=== PATIENT | male | born 1995 | race Caucasian/White ===

== ENCOUNTER 2020-03-12 09:28 | Emergency (ER) | payer BC ==
--- NOTE | 2020-03-12 10:04 | EDM.PDOC ---
ED HPI GENERAL MEDICAL PROBLEM - General Chief Complaint: Lower Extremity Injury/Pain Stated Complaint: INJURY RT KNEE Time Seen by Provider: 03/12/20 09:43 Source of Information: Reports: Patient History Limitations: Reports: No Limitations - History of Present Illness INITIAL COMMENTS - FREE TEXT/NARRATIVE: 24-year-old male presents with right knee pain that started 2 days ago. Pain came on acutely after bending. He felt a pop to his medial right knee. His right knee was swollen after the injury but has subsided since. He has been walking on it over the last 2 days. Denies fever, chills, ankle pain or hip pain. ROS: A 10-point review of systems, other than pertinent positives and negatives as stated per HPI, is otherwise negative Past medical history: No additional pertinent history Past Surgical history: No additional pertinent history Social history: No additional pertinent history Family history: No additional pertinent history PHYSICAL EXAM General: AOx4, GCS = 15, No distress HEENT: dry mucous membrane Neck: supple, no meningismus, no Kernig or Brudzinski Cardiac: S1S2 RRR Respiratory: CTAB, no crackles or rales, no wheezing Abdomen: Soft, nontender, no rebound or guarding, nondistended, no pulsatile mass. Back: nontender Musculoskeletal: NVI distally, no deformity, right knee medial joint line tenderness, tenderness to MCL insertion and with varus stress. Negative Yanelis, negative anterior or posterior drawer sign. Neuro: No focal deficits, CN 2 - 12 WNL. Right knee Pain Score (Numeric/FACES): 6 - Related Data Allergies Allergy/AdvReac Type Severity Reaction Status Date / Time No Known Allergies Allergy Verified 03/12/20 10:00 Home Meds: Home Meds . [No Known Home Meds] 03/12/20 [History] Review of Systems - Review of Systems Review Of Systems: Comprehensive ROS is negative, except as noted in HPI. ED EXAM, GENERAL - Physical Exam Exam: See Below ED TRAUMA EXTREMITY PROCEDURES - Splinting Right Lower Extremity Pre-Procedure NV Status: Normal Post-Procedure NV Status: Normal Splint Design: Knee Immobilizer Applied & Form Fitted By: Nurse Provider Post-Splint Application NV Check: NV Status Normal, Good Position Complications: No Course - Vital Signs Last Recorded V/S: Last Vital Signs Temp 96.7 F L 03/12/20 10:00 Pulse 65 03/12/20 10:00 Resp 17 03/12/20 10:00 BP 130/75 03/12/20 10:00 Pulse Ox 96 03/12/20 10:00 - Orders/Labs/Meds Orders: Active Orders 24 hr Category Date Time Status DME for Discharge [COMM] Stat Oth 03/12/20 10:00 Ordered DME for Discharge [COMM] Stat Oth 03/12/20 10:01 Ordered - Re-Assessments/Exams Free Text/Narrative Re-Assessment/Exam: 03/12/20 10:05 After splinting with immobilizer in the ER, he improved clinically and is currently stable for discharge. I performed a repeat exam and did not appreciate new abnormal findings. Patient exhibits normal vital signs. I advised the patient to return to the ER for reevaluation if symptoms worsened, including fever, worsening pain, or any other worrisome symptoms. I instructed the patient to follow up with their PCP within 2-3 days. MEDICAL DECISION MAKING: I reviewed the patients past medical records, lab and radiographic findings. I discussed the case with the patient. My differential diagnosis included: Exam suggestive of meniscus injury or MCL strain, he was placed in a knee immobilizer, recommended outpatient MRI with clinic, RICE treatment. Departure - Departure Time of Disposition: 10:45 Disposition: Home, Self-Care 01 Condition: Good Clinical Impression: Strain of knee and leg, right - Discharge Information *PRESCRIPTION DRUG MONITORING PROGRAM REVIEWED*: Not Applicable *COPY OF PRESCRIPTION DRUG MONITORING REPORT IN PATIENT SYLVIA: Not Applicable Instructions: Crutch Use, Adult, [id number], Knee Sprain, Adult, [id number], How to Use a Knee Immobilizer, [id number] Referrals: PCP,None [Primary Care Provider] - Forms: ED Department Discharge Additional Instructions: The following information is given to patients seen in the emergency department who are being discharged to home. This information is to outline your options for follow-up care. We provide all patients seen in our emergency department with a follow-up referral. The need for follow-up, as well as the timing and circumstances, are variable depending upon the specifics of your emergency department visit. If you don't have a primary care physician on staff, we will provide you with a referral. We always advise you to contact your personal physician following an emergency department visit to inform them of the circumstance of the visit and for follow-up with them and/or the need for any referrals to a consulting specialist. The emergency department will also refer you to a specialist when appropriate. This referral assures that you have the opportunity for follow-up care with a specialist. All of these measure are taken in an effort to provide you with optimal care, which includes your follow-up. Under all circumstances we always encourage you to contact your private physician who remains a resource for coordinating your care. When calling for follow-up care, please make the office aware that this follow-up is from your recent emergency room visit. If for any reason you are refused follow-up, please contact the [facility] Department at and asked to speak to the emergency department charge nurse. If you do not have a primary care doctor, please follow up with the clinics below within 3-5 days. [facility] - [facility] [address] [place] [address] [id number] [address] [address] Sepsis Event Note (ED) - Focused Exam Vital Signs: Vital Signs Temp Pulse Resp BP Pulse Ox 03/12/20 10:00 96.7 F L 65 17 130/75 96 - My Orders Last 24 Hours: My Active Orders 03/12/20 10:00 DME for Discharge [COMM] Stat 03/12/20 10:01 DME for Discharge [COMM] Stat - Assessment/Plan Last 24 Hours: My Active Orders 03/12/20 10:00 DME for Discharge [COMM] Stat 03/12/20 10:01 DME for Discharge [COMM] Stat
--- NOTE | 2020-03-12 11:05 | CR ---
Right knee: AP, lateral and sunrise patellar views were obtained of the right knee. Comparison: No previous right knee exam. Medial and lateral joint compartments are maintained in height. No joint effusion is seen. Patellofemoral joint appears normal. No fracture or subluxation is appreciated. Impression: 1. No abnormality is identified on 3 view right knee exam. Diagnostic code #1 This report was dictated in MDT
== END 2020-03-12 11:48 | disposition home or self-care (01) ==
LOC: MW.ED 09:28
DX: S86.911A Strain of unspecified muscle(s) and tendon(s) at lower leg level, right leg, initial encounter (principal); X58.XXXA Exposure to other specified factors, initial encounter
CPT/HCPCS: 29505; 73562-26-RT; 73562-RT; 99282; 99283-25